=== PATIENT | male | born 1965 | race Two or more races ===

== ENCOUNTER 2019-10-14 08:18 | Emergency (ER) | payer MEDICARE, OTHER ==
[~2019-10-14] VITALS: Ht 177.8 cm; Wt 77.5 kg
[2019-10-14 08:47] VITALS: BP 152/98
[2019-10-14] MEDS ORDERED: LIDOCAINE-MPF 1%, 5ML INFIL ONE (09:30)
[2019-10-14] MEDS ORDERED: LIDOCAINE-MPF 1%, 5ML ONE (09:30)
[2019-10-14] MEDS ORDERED: DIPH,PERTUSS(ACELL),TET VAC/PF 0.5 ML IM-VACC ONE ×2 (09:30)
--- NOTE | 2019-10-14 09:31 | NUR ---
JAN LADD IN ROOM FOR I&D.
--- NOTE | 2019-10-14 09:57 | NUR ---
Patient given discharge instructions and they have confirmed that they understand the instructions. Patient ambulatory with steady gait.
== END 2019-10-14 09:59 | disposition home or self-care (01) ==
LOC: ED 09:50
DX: L02.211 Cutaneous abscess of abdominal wall (principal); F17.200 Nicotine dependence, unspecified, uncomplicated; L53.8 Other specified erythematous conditions; Z21 Asymptomatic human immunodeficiency virus [HIV] infection status
CPT/HCPCS: 10060; 90471; 90715

== ENCOUNTER 2019-10-16 16:18 | Emergency (ER) | payer OTHER ==
[~2019-10-16] VITALS: Ht 177.8 cm; Wt 77.5 kg
--- NOTE | 2019-10-16 16:30 | NUR ---
PT PRESENTING TO ER FOR ABD ABCESS, SEEN THURSDAY FOR SAME I&D DONE AT THAT TIME. ABCESS REOCCURING. HTN AND TACHY UPON ARRIVAL. CALL LIGHT WITHIN REACH
[2019-10-16] MEDS ORDERED: LIDOCAINE-MPF 1%, 5ML ONE (16:36)
--- NOTE | 2019-10-16 16:40 | NUR ---
PA AT BEDSIDE FOR I&D
--- NOTE | 2019-10-16 16:53 | NUR ---
I&D COMPLETED, PACKING AND DRESSING DONE. PT READY FOR DC
[2019-10-16 16:54] VITALS: BP 155/99
== END 2019-10-16 17:13 | disposition home or self-care (01) ==
LOC: ED 16:56
DX: L02.211 Cutaneous abscess of abdominal wall (principal)
CPT/HCPCS: 10060

== ENCOUNTER 2019-10-18 14:29 | Emergency (ER) | payer OTHER ==
[~2019-10-18] VITALS: Ht 177.8 cm; Wt 77.3 kg
[2019-10-18 14:31] VITALS: BP 152/101
--- NOTE | 2019-10-18 15:50 | NUR ---
Pt here for left lower abd abcess. Pt reports that the packing fell out. Pt has purulent fluid draining. Pt reports that it is tender to palpation.
--- NOTE | 2019-10-18 15:53 | NUR ---
PA to bedside and draining fluid at this time.
[2019-10-18] MEDS ORDERED: LIDOCAINE-MPF 1%, 5ML INFIL ONE (16:00)
--- NOTE | 2019-10-18 16:14 | NUR ---
Patient/Caregiver given discharge instructions and they have confirmed that they understand the instructions. Patient ambulatory with steady gait.
== END 2019-10-18 16:16 | disposition home or self-care (01) ==
LOC: ED 16:05
DX: L02.11 Cutaneous abscess of neck (principal); F17.200 Nicotine dependence, unspecified, uncomplicated
CPT/HCPCS: 99281; 99282

== ENCOUNTER 2019-10-20 10:04 | Emergency (ER) | payer OTHER ==
[~2019-10-20] VITALS: Ht 175.3 cm; Wt 77.0 kg
--- NOTE | 2019-10-20 11:23 | NUR ---
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
--- NOTE | 2019-10-20 11:59 | NUR ---
JULEE LOPEZ AT BEDSIDE FOR RECHECK OF WOUND/REPACKING. WOUND APPEARS TO BE HEALING WELL. PT AO X 4. SKIN PWD. RESP EVEN AND UNLABORED. PT DENIES FEVERS OR N/V. WILL CONT TO MONITOR PT.
[2019-10-20 13:07] VITALS: BP 131/87
== END 2019-10-20 13:09 | disposition home or self-care (01) ==
LOC: ED 11:42
DX: Z48.01 Encounter for change or removal of surgical wound dressing (principal); F17.200 Nicotine dependence, unspecified, uncomplicated
CPT/HCPCS: 99281

== ENCOUNTER 2019-10-22 15:39 | Emergency (ER) | payer OTHER ==
[~2019-10-22] VITALS: Ht 177.8 cm; Wt 78.0 kg
[2019-10-22 15:47] VITALS: BP 167/94
--- NOTE | 2019-10-22 16:01 | NUR ---
"IM HERE FOR A F/U. I HAVE AN ABCESS ON THE ABD WALL." NO COMPLAINTS
[2019-10-22] MEDS ORDERED: NEOSPORIN OINT. PKT 1 PACKET ONE (16:25)
--- NOTE | 2019-10-22 16:30 | NUR ---
WOUND DRESSED AND CLEANED BY TECH. DISCHARGE INSTRUCTIONS REVIEWED
== END 2019-10-22 16:40 | disposition home or self-care (01) ==
LOC: ED 16:01
DX: Z48.01 Encounter for change or removal of surgical wound dressing (principal); F17.200 Nicotine dependence, unspecified, uncomplicated
CPT/HCPCS: 99284